=== PATIENT | female | born 1995 | race Caucasian/White ===

== ENCOUNTER 2019-03-16 10:58 | Observation (INO) ==
[2019-03-16] MEDS ORDERED: Ringers Solution, Lactated 1,000 ML IVC SCH (11:00)
[2019-03-16 11:48] LABS: Bilirubin,Urine Negative (Negative); Blood,Urine Negative (Negative); Clarity,Urine Clear (Clear); Color,Urine Yellow (Yellow); Glucose,Urine (UA) Normal (Normal); Ketones,Urine 15 mg/dL (Negative); Leukocyte Esterase,Urine Negative (Negative); Nitrite,Urine Negative (Negative); Protein,Urine Negative (Neg-Trace); Specific Gravity,Urine 1.023 (1.010-1.025); Urobilinogen,Urine Normal (Normal)
[2019-03-16 11:57] LABS: Amphetamine Screen,Urine Negative ng/mL (Cutoff=1000); Barbiturate Screen,Urine Negative ng/mL (Cutoff=200); Benzodiazepines Screen,Urine Negative ng/mL (Cutoff=200); Cannabinoid Screen,Urine Negative ng/mL (Cutoff = 50); Cocaine Screen,Urine Negative ng/mL (Cutoff= 300); Opiate Screen,Urine Negative ng/mL (Cutoff=300); Phencyclidine Screen,Urine Negative ng/mL (Cutoff=25)
--- NOTE | 2019-03-16 15:29 | OB/GYN Progress Note ---
Date of Encounter: 03/16/19 Time of Encounter: 15:27 - Assessment and Plan (1) 34 weeks gestation of Status: Acute (2) Dehydration during Status: Acute Patient states she did not have a lot of water yesterday, but did not try to check a couple 30 o'clock this before bedtime. Given 1 L fluid bolus, patient states she feels much better, and would like to be discharged to she can go at lunch. Discharged home with labor and when to return to triage precautions. Verbalizes understanding and in agreement with plan Subjective - Subjective Interval history: 34+3 weeks gestation presents to triage with complaints of dizziness and visual changes. Patient states she just does not feel right. Reports good movement, denies contractions vaginal bleeding or leaking of fluid. Antepartum ROS: movement normal, no loss of fluid, no vaginal bleeding, no contractions Objective - Vital Signs Vital Signs: Intake and Output 03/15/19 03/16/19 03/16/19 23:59 07:59 15:59 Other: Weight 89.7 kg Patient Weight 03/16/19 23:59 Weight 89.7 kg - Exam FHR: auscultation normal FHR comments: Baseline 115 Abdomen: Present: soft, gravid - Labs Labs: Abnormal lab results Urine Ketones 15 mg/dL (Negative) H 03/16/19 11:29
== END 2019-03-16 14:33 | disposition home or self-care (01) ==
LOC: 1NENULAB
PROVIDERS: ADMIT Advanced Practice Midwife; ATTEND Advanced Practice Midwife

== ENCOUNTER → 2021-08-08 14:00 | Observation (INO) ==
[2021-08-08 10:39] LABS: Bacteria,Urine Few per hpf (None-Few); Bilirubin,Urine Negative (Negative); Blood,Urine Negative (Negative); Clarity,Urine Turbid (Clear); Color,Urine Yellow (Yellow); Glucose,Urine (UA) Normal (Normal); Ketones,Urine 10 mg/dL (Negative); Leukocyte Esterase,Urine Trace (Negative); Mucus,Urine Many per lpf (None-Few); Nitrite,Urine Negative (Negative); PH,Urine 5.5 pH Units (5.0-8.0); Protein,Urine 30 mg/dL (Neg-Trace); Squamous Epithelial Cell,Urine Moderate per hpf (None-Few); Urobilinogen,Urine Normal (Normal)
[~2021-08-08 14:00] MED LIST: Ondansetron 4 MG/2 ML VIAL IVP PRN; Ringers Solution, Lactated 1,000 ML IVC ONE; Ringers Solution, Lactated 1,000 ML IVC SCH
== END | disposition home or self-care (01) ==
LOC: 1NENULAB
PROVIDERS: ADMIT Advanced Practice Midwife; ATTEND Advanced Practice Midwife